=== PATIENT | female | born 1955 | race African-American/Black ===

== ENCOUNTER → 2022-09-05 | Day surgery (SDC) | payer OTHER ==
[2022-09-05 12:02] LABS: HEMATOCRIT 42.1 % (32.4-45.2); HEMOGLOBIN 13.9 GM/dL (10.7-15.3); MCH 30.3 pg (25.7-33.7); MEAN CELL VOLUME 91.9 fl (80-96); MEAN PLT VOLUME 7.6 fl (7.5-11.1); PLATELET COUNT 312 10^3/uL (134-434); RBC 4.59 M/mm3 (3.60-5.2); RDW 12.9 % (11.6-15.6); WHITE BLOOD COUNT 5.6 K/mm3 (4.0-10.0)
[2022-09-05 12:12] LABS: CALCIUM 9.3 mg/dL (8.5-10.1)
[2022-09-05 12:13] LABS: BLOOD UREA NITROGEN 16.1 mg/dL (7-18)
[2022-09-05 12:16] LABS: CREATININE 0.7 mg/dL (0.55-1.3)
[2022-09-05 12:19] LABS: ALBUMIN 3.9 g/dl (3.4-5.0); BILIRUBIN,DIRECT 0.2 mg/dL (0.0-0.2)
[2022-09-05 12:23] LABS: BILIRUBIN,TOTAL 0.5 mg/dL (0.2-1); TOT PROT 7.5 g/dl (6.4-8.2)
== END | disposition home or self-care (01) ==
LOC: JMAMMO 10:05 → JMAMMO-SUR 10:05
PROVIDERS: ATTEND Surgery Surgical Oncology
PROC: BH00ZZZ Plain Radiography of Right Breast (ICD-10-PCS; principal; 2022-09-05)
DX: C50.911 Malignant neoplasm of unspecified site of right female breast (principal)
CPT/HCPCS: 19281; L8699; 36415; 80048; 80076; 85027; A4648; C9803-CS; U0003; U0005

== ENCOUNTER 2022-09-07 04:12 | Day surgery (SDC) | payer OTHER ==
[2022-09-05 16:05] VITALS: BMI 36.0
[2022-09-07] MEDS ORDERED: LIDOCAINE HCL 1% EPINEPHRINE 1:200,000 30 ML VIAL (PF) ONE (12:44)
[2022-09-07] MEDS ORDERED: BUPIVACAINE HCL/PF 0.5% (5MG/ML) 10 ML VIAL ONE (12:44)
[2022-09-07] MEDS ORDERED: SUCCINYLCHOLINE CHLORIDE 200 MG/10 ML SYRINGE ONE (13:01)
[2022-09-07] MEDS ORDERED: PROPOFOL 40 ML ONE (13:01)
[2022-09-07] MEDS ORDERED: LIDOCAINE HCL/PF 2% SDV 5ML VIAL ONE (13:01)
[2022-09-07] MEDS ORDERED: MIDAZOLAM HCL 2 MG/2 ML SINGLE DOSE VIAL ONE (13:02)
[2022-09-07] MEDS ORDERED: LIDOCAINE 1%/EPI 1:100000 (50 ML MULTI DOSE VIAL) INF ONE ×2 (13:21)
[2022-09-07] MEDS ORDERED: BUPIVACAINE HCL/PF 0.5% (5 MG/ML) 30 ML VIAL IJ ONE ×3 (13:22)
[2022-09-07] MEDS ORDERED: ceFAZolin SODIUM 1 GM VIAL IVPB ONE (13:24)
[2022-09-07] MEDS ORDERED: ACETAMINOPHEN 1000 MG/100 ML BAG IVPB ONE ×2 (15:00→15:06)
[2022-09-07] MEDS ORDERED: LACTATED RINGERS SOLUTION 1,000 ML IV SCH (15:00)
[2022-09-07] MEDS ORDERED: ONDANSETRON 4 MG/2 ML VIAL IVPUSH PRN (15:00)
[2022-09-07 16:56] VITALS: PULSE 95; TEMP 98.3
[2022-09-07] MEDS ORDERED: ACETAMINOPHEN INJECTION 100 ML IVPB ONE (17:06)
[2022-09-07 17:18] VITALS: RESP 20
[2022-09-07 18:25] VITALS: BP 141/96
== END 2022-09-07 17:40 | disposition home or self-care (01) ==
LOC: JASU-SURG 04:12
PROVIDERS: ATTEND Surgery Surgical Oncology
PROC: C71L1ZZ Planar Nuclear Medicine Imaging of Upper Chest Lymphatics using Technetium 99m (Tc-99m) (ICD-10-PCS; 2022-09-07)
PROC: 0HBT0ZZ Excision of Right Breast, Open Approach (ICD-10-PCS; principal; 2022-09-07 12:00)
PROC: 07B50ZX Excision of Right Axillary Lymphatic, Open Approach, Diagnostic (ICD-10-PCS; 2022-09-07 12:00)
DX: C50.911 Malignant neoplasm of unspecified site of right female breast (principal); C77.3 Secondary and unspecified malignant neoplasm of axilla and upper limb lymph nodes
CPT/HCPCS: 19281; 76098-TC-FY; 77065-TC; 78195-TC; 88307-TC; 88342-TC; 94760; A9541